=== PATIENT | male | born 1955 | race Caucasian/White ===

== ENCOUNTER 2017-11-30 15:21 | Emergency (ER) | payer SELFPAY ==
[~2017-11-30] VITALS: Ht 175.3 cm; Wt 90.3 kg
[2017-11-30 15:30] VITALS: Ht 175.3 cm; Wt 90.3 kg
[2017-11-30 16:56] VITALS: BP 150/74
== END 2017-11-30 16:56 | disposition home or self-care (01) ==
LOC: ED 15:21
DX: K40.90 Unilateral inguinal hernia, without obstruction or gangrene, not specified as recurrent (principal); M54.16 Radiculopathy, lumbar region; Z88.0 Allergy status to penicillin